=== PATIENT | female | born 1935 | race Two or more races ===

== ENCOUNTER 2018-01-22 12:18 | Outpatient (CLI) | payer OTHER ==
[~2018-01-22 12:18] MED LIST: CALCIO DEL MAR500 MG; LEVOXYL75 MCG; MOBIC7.5 MG; PIRIDIUM
== END 2018-01-22 15:02 | disposition home or self-care (01) ==
LOC: RAD 12:18
DX: J06.9 Acute upper respiratory infection, unspecified (principal)

== ENCOUNTER 2018-05-25 23:15 | Inpatient (IN) | payer OTHER ==
[~2018-05-25] VITALS: Ht 152.4 cm; Wt 45.4 kg
[2018-05-25] MEDS ORDERED: SYNTHROID100 MCG (23:19)
[2018-05-25] MEDS ORDERED: BISOPROLOL FUMAR5 MG (23:20)
== END 2018-05-27 18:37 | disposition home or self-care (01) | DRG 312 ==
LOC: ER 23:15 → MEDJ 05-26 13:27 → SEC-K 05-26 13:27 → MEDI 05-26 13:56 → MEDJ 05-26 13:56
PROC: 4A033R1 Measurement of Arterial Saturation, Peripheral, Percutaneous Approach (ICD-10-PCS; principal; 2018-05-26)
PROC: B345ZZZ Ultrasonography of Bilateral Common Carotid Arteries (ICD-10-PCS; 2018-05-26)
PROC: B348ZZZ Ultrasonography of Bilateral Internal Carotid Arteries (ICD-10-PCS; 2018-05-26)
PROC: B030ZZZ Magnetic Resonance Imaging (MRI) of Brain (ICD-10-PCS; 2018-05-26)
PROC: 4A12X4Z Monitoring of Cardiac Electrical Activity, External Approach (ICD-10-PCS; 2018-05-26)
DX: R55 Syncope and collapse (principal); I10 Essential (primary) hypertension; E03.8 Other specified hypothyroidism
CPT/HCPCS: 70551

== ENCOUNTER 2018-06-06 12:05 | Outpatient (CLI) | payer OTHER ==
[~2018-06-06 12:05] MED LIST changes: +BISOPROLOL FUMAR5 MG; +SYNTHROID100 MCG
== END 2018-06-06 17:00 | disposition home or self-care (01) ==
LOC: MRI 12:05
DX: R10.11 Right upper quadrant pain (principal); R10.31 Right lower quadrant pain; K86.89 Other specified diseases of pancreas
CPT/HCPCS: 74181; 74183

== ENCOUNTER 2020-07-29 13:19 | Emergency (ER) | payer OTHER ==
[~2020-07-29] VITALS: Ht 154.9 cm; Wt 50.8 kg
[2020-07-29] MEDS ORDERED: SYNTHROID112 MCG PO (13:30)
[2020-07-29] MEDS ORDERED: LOSARTAN POTASS25 MG PO (13:30)
[2020-07-29] MEDS ORDERED: FAMOTIDINE20 MG PO (13:31)
== END 2020-07-29 18:41 | disposition home or self-care (01) ==
LOC: ER 13:19
DX: R53.81 Other malaise (principal); R53.83 Other fatigue; R00.2 Palpitations; Z20.828 Contact with and (suspected) exposure to other viral communicable diseases

== ENCOUNTER 2021-02-02 16:18 | Emergency (ER) | payer OTHER ==
[~2021-02-02] VITALS: Ht 154.9 cm; Wt 50.8 kg
[~2021-02-02 16:18] MED LIST changes: +FAMOTIDINE20 MG PO; +LOSARTAN POTASS25 MG PO; +SYNTHROID112 MCG PO
== END 2021-02-02 19:16 | disposition home or self-care (01) ==
LOC: ER 16:18
DX: S50.11XA Contusion of right forearm, initial encounter (principal); S30.0XXA Contusion of lower back and pelvis, initial encounter; S60.221A Contusion of right hand, initial encounter; W18.39XA Other fall on same level, initial encounter; Y93.89 Activity, other specified; Y92.69 Other specified industrial and construction area as the place of occurrence of the external cause; Y99.8 Other external cause status

== ENCOUNTER → 2021-03-09 15:00 | Outpatient (CLI) | payer OTHER | END | disposition home or self-care (01) | LOC: PPH VACUNA 15:00 | DX: Z23 Encounter for immunization (principal) ==

== ENCOUNTER → 2021-03-30 | Outpatient (CLI) | payer OTHER | END | disposition home or self-care (01) | LOC: PPH VACUNA 10:40 | DX: Z23 Encounter for immunization (principal) ==

== ENCOUNTER → 2021-08-16 08:56 | Outpatient (CLI) | payer OTHER | END | disposition home or self-care (01) | LOC: RX STUDY 08:56 | PROVIDERS: ATTEND Internal Medicine Gastroenterology | DX: K21.00 Gastro-esophageal reflux disease with esophagitis, without bleeding (principal); R10.13 Epigastric pain ==

== ENCOUNTER 2021-09-29 12:39 | Emergency (ER) | payer OTHER ==
[~2021-09-29] VITALS: Ht 149.9 cm; Wt 48.1 kg
[2021-09-29] MEDS ORDERED: MEDROLPACK PO (16:22)
[2021-09-29] MEDS ORDERED: TESSALON PERLE100 M1 PO (16:22)
[2021-09-29] MEDS ORDERED: AMOX1TAB5 PO (16:22)
== END 2021-09-29 16:52 | disposition home or self-care (01) ==
LOC: ER 12:39
DX: J06.9 Acute upper respiratory infection, unspecified (principal); Z03.818 Encounter for observation for suspected exposure to other biological agents ruled out; E03.9 Hypothyroidism, unspecified; I10 Essential (primary) hypertension

== ENCOUNTER 2021-11-06 16:21 | Emergency (ER) | payer OTHER ==
[~2021-11-06] VITALS: Ht 152.4 cm; Wt 68.0 kg
[~2021-11-06 16:21] MED LIST changes: +AMOX1TAB5 PO; +MEDROLPACK PO; +TESSALON PERLE100 M1 PO
[2021-11-06] MEDS ORDERED: BACTRIM DS TAB1 EACH PO (19:23)
== END 2021-11-06 20:08 | disposition home or self-care (01) ==
LOC: ER 16:21
DX: N39.0 Urinary tract infection, site not specified (principal)

== ENCOUNTER 2021-11-16 14:14 | Outpatient (CLI) | payer OTHER ==
[~2021-11-16 14:14] MED LIST changes: +BACTRIM DS TAB1 EACH PO
== END 2021-11-16 14:30 | disposition home or self-care (01) ==
LOC: SONOGRAMA 14:14
PROVIDERS: ATTEND Specialist
DX: R11.0 Nausea (principal); R07.9 Chest pain, unspecified

== ENCOUNTER 2021-11-20 12:30 | Outpatient (CLI) | payer OTHER | END 2021-11-20 12:50 | disposition home or self-care (01) | LOC: PPH VACUNA 12:30 | PROVIDERS: ATTEND Emergency Medicine Pediatric Emergency Medicine | DX: Z23 Encounter for immunization (principal) ==

== ENCOUNTER 2022-11-14 11:34 | Outpatient (CLI) | payer OTHER ==
[~2022-11-14 11:34] MED LIST changes: +BISOPROLOL-HCT1 EAC1
== END 2022-11-14 14:09 | disposition home or self-care (01) ==
LOC: RAD 11:34
DX: M54.2 Cervicalgia (principal)

== ENCOUNTER 2023-08-27 09:44 | Emergency (ER) | payer OTHER ==
[~2023-08-27] VITALS: Ht 144.8 cm; Wt 49.0 kg
== END 2023-08-27 14:36 | disposition home or self-care (01) ==
LOC: ER 09:44
DX: G51.0 Bell's palsy (principal); Z91.040 Latex allergy status

== ENCOUNTER 2024-07-23 11:32 | Outpatient (CLI) | payer OTHER | END 2024-07-23 11:33 | disposition home or self-care (01) | LOC: NUCLEAR 11:32 | PROVIDERS: ATTEND Internal Medicine | DX: I10 Essential (primary) hypertension (principal); R07.9 Chest pain, unspecified; R06.00 Dyspnea, unspecified ==

== ENCOUNTER → 2024-08-03 | Outpatient (CLI) | payer OTHER | END | disposition home or self-care (01) | LOC: TOM 13:03 | PROVIDERS: ATTEND Internal Medicine Pulmonary Disease | DX: R06.02 Shortness of breath (principal); R05.3 Chronic cough ==

== ENCOUNTER 2024-08-17 07:21 | Outpatient (CLI) | payer OTHER | END 2024-08-17 07:22 | disposition home or self-care (01) | LOC: NUCLEAR 07:21 | PROVIDERS: ATTEND Internal Medicine | DX: R07.81 Pleurodynia (principal) | CPT/HCPCS: 78452; 93017; A9500; J0153 ==

== ENCOUNTER 2024-08-28 12:37 | Outpatient (CLI) | payer OTHER | END 2024-08-28 13:00 | disposition home or self-care (01) | LOC: MRI 12:37 | PROVIDERS: ATTEND Physical Medicine & Rehabilitation | DX: M41.9 Scoliosis, unspecified (principal); M54.2 Cervicalgia | CPT/HCPCS: 72141 ==

== ENCOUNTER 2025-02-15 11:17 | Outpatient (CLI) | payer OTHER | END 2025-02-15 11:18 | disposition home or self-care (01) | LOC: NUCLEAR 11:17 | DX: I73.9 Peripheral vascular disease, unspecified (principal); I87.2 Venous insufficiency (chronic) (peripheral) ==

== ENCOUNTER 2025-04-26 09:19 | Emergency (ER) | payer OTHER ==
[~2025-04-26] VITALS: Ht 144.8 cm; Wt 51.7 kg
[2025-04-26] MEDS ORDERED: ROSUVASTATIN CAL5 MG PO (10:02)
[2025-04-26] MEDS ORDERED: MECLIZINE HCL 25 MG TABLET PO ONE (10:30)
[2025-04-26] MEDS ORDERED: CLONIDINE HCL 0.1 MG TABLET PO ONE ×2 (10:30→10:33)
== END 2025-04-26 12:47 | disposition home or self-care (01) ==
LOC: ER 09:19
DX: I10 Essential (primary) hypertension (principal); E03.8 Other specified hypothyroidism; Z91.040 Latex allergy status

== ENCOUNTER → 2025-08-27 | Outpatient (CLI) | payer OTHER ==
[~2025-08-27] MED LIST changes: +ROSUVASTATIN CAL5 MG PO
== END | disposition home or self-care (01) ==
LOC: MRI 13:34
DX: C96.4 Sarcoma of dendritic cells (accessory cells) (principal)
CPT/HCPCS: 70553

== ENCOUNTER → 2025-10-07 09:11 | Outpatient (CLI) | payer OTHER ==
[2025-10-07 09:55] LABS: BASO % 1.3 % (0.1-1.2); EOS # 0.05 (0.04-0.54); EOS % 1.0 % (0.7-7.0); LYMPH # 1.11 (1.18-3.74); LYMPH % 23.1 % (19.3-53.1); MEAN PLATELET VOLUME 9.60 fl (9.4-12.4); MONO # 0.45 (0.24-0.82); MONO % 9.4 % (4.7-12.5); NEUT # 3.12 (1.56-6.13); NEUT % 65.0 % (34.0-71.1); RED CELL DISTRIBUTION WIDTH 13.8 % (11.6-14.4)
[2025-10-07 10:01] LABS: URINE APPEARANCE Clear; URINE BILIRRUBIN Negative (NEGATIVE); URINE BLOOD Negative; URINE COLOR Yellow; URINE GLUCOSE Negative (NEGATIVE); URINE KETONE Negative (NEGATIVE); URINE LEUKOCYTE Small; URINE NITRATE Negative; URINE PROTEIN Negative (NEGATIVE); URINE UROBILINOGEN 0.2 E.U./dl
[2025-10-07 10:04] LABS: URINE EPITHELIAL CELLS 9.6 uL (0.0-38.8); URINE RBC 46.4 uL (0.0-20.8); URINE WBC 33.2 uL (0.0-23.2)
[2025-10-07 10:22] LABS: INR 0.98
[2025-10-07 10:46] LABS: URINE CAST 0.29 uL (0.0-1.40)
[2025-10-07 11:00] LABS: BUN CREA RATIO 44.0 (7.0-25.0); CREATININE SERUM 0.7 mg/dL (0.55-1.02); GFR 78.97; GLUCOSE FASTING 106.0 mg/dL (65-100); OSMOLALITY SERUM 286.0 MOSM/KG (275-295)
== END | disposition home or self-care (01) ==
LOC: RAD 09:11
DX: C96.4 Sarcoma of dendritic cells (accessory cells) (principal); Z01.812 Encounter for preprocedural laboratory examination